=== PATIENT | female | born 1995 | race African-American/Black ===

== ENCOUNTER 2017-12-05 01:59 | Emergency (ER) | payer OTHER ==
[2017-12-05] VITALS (8 sets, daily range): BP systolic 92–128; BP diastolic 52–89
[~2017-12-05] VITALS: Ht 167.6 cm; Wt 56.7 kg
[2017-12-05] MEDS ORDERED: CLONAZEPAM2 MG PO (02:16)
[2017-12-05] MEDS ORDERED: TRINESSA1 EAC1 PO (02:16)
[2017-12-05] MEDS ORDERED: BUPROPION XL300 MG ORAL (02:16)
[2017-12-05 02:44] LABS: BASOPHILS % (AUTO) 1.3 % (0.0-2.0); EOSINOPHILS % (AUTO) 1.5 % (0.0-3.0); HEMATOCRIT 37.2 % (37.0-47.0); MEAN CORPUSCULAR VOLUME 85 FL (80-99); MONOCYTES % (AUTO) 6.3 % (1.0-10.0); NEUTROPHILS % (AUTO) 80.9 % (45.0-75.0); PLATELET COUNT 190 K/UL (150-450); RED BLOOD COUNT 4.39 M/UL (4.20-5.40); WHITE BLOOD COUNT 13.3 K/UL (4.8-10.8)
[2017-12-05 02:50] LABS: ANION GAP 10 mmol/L (5-15); BLOOD UREA NITROGEN 10 mg/dL (7-18); CALCIUM 8.9 MG/DL (8.5-10.1); CARBON DIOXIDE 26 MMOL/L (21-32); CHLORIDE 104 MMOL/L (98-107); CREATININE 0.6 MG/DL (0.55-1.30); POTASSIUM 4.1 MMOL/L (3.5-5.1); SODIUM 139 MMOL/L (136-145)
[2017-12-05 02:50] LABS: APPEARANCE,URINE CLEAR; BILIRUBIN, URINE NEGATIVE (NEGATIVE); COLOR,URINE PALE YELLOW; GLUCOSE, URINE (UA) NEGATIVE (NEGATIVE); KETONES,URINE 4+ (NEGATIVE); LEUKOCYTE ESTERASE ,URINE NEGATIVE (NEGATIVE); NITRITE,URINE NEGATIVE (NEGATIVE); PH,URINE 6 (4.5-8.0); PROTEIN,URINE NEGATIVE (NEGATIVE); UROBILINOGEN,URINE NORMAL MG/DL (0.0-1.0)
[2017-12-05 02:55] LABS: ALANINE AMINOTRANSFERASE 23 U/L (12-78); ALBUMIN 3.9 G/DL (3.4-5.0); ALBUMIN/GLOBULIN RATIO 0.9 (1.0-2.7); ALKALINE PHOSPHATASE 87 U/L (46-116); ASPARTATE AMINO TRANSFERASE 22 U/L (15-37); BILIRUBIN,TOTAL 0.8 MG/DL (0.2-1.0)
--- NOTE | 2017-12-05 05:01 | Emergency Room Report ---
History of Present Illness General Chief Complaint: Overdose Source: Patient, Friend, EMS Present Illness HPI This is a 22-year-old female with a history of depression with recent admission to psychiatric facility. She presents with chief complaint of overdose and suicidal attempt. Her friend called 911 because patient was in the bathroom for very long period of time. When they open the bathroom door patient had handcuffed herself and said that she took some Seroquel and other medication to kill herself. She wrote a suicide note that the friend brought here later. Patient here said that she took other medication also. She told the nurse that she took ibuprofen and Seroquel. She told me that she took Ativan and Klonopin. She took this several hours ago. Previous suicide attempt. She has been more depressed because her boyfriend recently committed suicide. He was admitted here to ICU and subsequently from his overdose. Allergies: Coded Allergies: No Known Allergies (Unverified , 12/05/17) Patient History Past Medical History: see triage record, old chart reviewed Past Surgical History: none Family History: none Social History: ETOH, drug use Last Menstrual Period: 2 weeks ago Now: No Immunizations: other Reviewed Nursing Documentation: PMH: Agreed; PSxH: Agreed Nursing Documentation-PMH Past Medical History: No History, Except For History Of Psychiatric Problem: Yes - Anxiety, Depression Review of Systems ENT: Denies: sore throat Cardiovascular: Denies: chest pain, palpitations Gastrointestinal/Abdominal: Denies: nausea, vomiting, diarrhea Musculoskeletal: Denies: back problems Skin: Denies: rash Neurological: Denies: PYLE, seizures All Other Systems: negative except mentioned in HPI Physical Exam Vital Signs Date Time Temp Pulse Resp B/P (MAP) Pulse Ox O2 Delivery O2 Flow Rate FiO2 12/05/17 02:06 97.6 79 16 146/87 99 Room Air 97.5 vitals normal Sp02 EP Interpretation: reviewed, normal General Appearance: no apparent distress, non-toxic, other - sleepy Head: normocephalic, atraumatic Eyes: PERRL, EOMI ENT: oropharynx normal Neck: supple/symm/no masses Respiratory: effort normal, no rhonchi, no wheezing Cardiovascular: no murmur, gallop, rub Gastrointestinal: non-tender, no mass, non-distended, no rebound/guarding, normal bowel sounds Musculoskeletal: strength & tone normal Neurologic: oriented x3, sensory intact, motor strength/tone normal Suicide Risk Assessment: Suicidal Ideation: Yes Had intent to initiate attempt: Yes Pt's plan for suicide attempt: Yes Has means to complete attempt: Yes Skin: no rash, normal palpation Medical Decision Making Diagnostic Impression: Primary Impression: Drug overdose Qualified Codes: T50.902A - Poisoning by unspecified drugs, medicaments and biological substances, intentional self-harm, initial encounter Additional Impressions: Depression Qualified Codes: F33.3 - Major depressive disorder, recurrent, severe with psychotic symptoms Suicidal overdose Qualified Codes: T50.902A - Poisoning by unspecified drugs, medicaments and biological substances, intentional self-harm, initial encounter Cocaine abuse ER Course Patient presents with a suicide attempt from drug overdose. She is heme- negative police stable and medically clear from my standpoint. We'll get psychiatric evaluation for [id number]. Laboratory Tests Test 12/05/17 02:25 12/05/17 02:45 White Blood Count 13.3 K/UL (4.8-10.8) H Red Blood Count 4.39 M/UL (4.20-5.40) Hemoglobin 12.0 G/DL (12.0-16.0) Hematocrit 37.2 % (37.0-47.0) Mean Corpuscular Volume 85 FL (80-99) Mean Corpuscular Hemoglobin 27.4 PG (27.0-31.0) Mean Corpuscular Hemoglobin Concent 32.4 G/DL (32.0-36.0) Red Cell Distribution Width 14.0 % (11.6-14.8) Platelet Count 190 K/UL (150-450) Mean Platelet Volume 7.3 FL (6.5-10.1) Neutrophils (%) (Auto) 80.9 % (45.0-75.0) H Lymphocytes (%) (Auto) 10.0 % (20.0-45.0) L Monocytes (%) (Auto) 6.3 % (1.0-10.0) Eosinophils (%) (Auto) 1.5 % (0.0-3.0) Basophils (%) (Auto) 1.3 % (0.0-2.0) Sodium Level 139 MMOL/L (136-145) Potassium Level 4.1 MMOL/L (3.5-5.1) Chloride Level 104 MMOL/L (98-107) Carbon Dioxide Level 26 MMOL/L (21-32) Anion Gap 10 mmol/L (5-15) Blood Urea Nitrogen 10 mg/dL (7-18) Creatinine 0.6 MG/DL (0.55-1.30) Estimat Glomerular Filtration Rate > 60 mL/min (>60) Glucose Level 74 MG/DL (74-106) Calcium Level 8.9 MG/DL (8.5-10.1) Total Bilirubin 0.8 MG/DL (0.2-1.0) Aspartate Amino Transf (AST/SGOT) 22 U/L (15-37) Alanine Aminotransferase (ALT/SGPT) 23 U/L (12-78) Alkaline Phosphatase 87 U/L (46-116) Total Protein 8.1 G/DL (6.4-8.2) Albumin 3.9 G/DL (3.4-5.0) Globulin 4.2 g/dL Albumin/Globulin Ratio 0.9 (1.0-2.7) L Salicylates Level 0.8 ug/mL (2.8-20) L Acetaminophen Level < 2 MCG/ML (10-30) L Serum Alcohol < 3 mg/dL Urine Color Pale yellow Urine Appearance Clear Urine pH 6 (4.5-8.0) Urine Specific [place] 1.010 (1.005-1.035) Urine Protein Negative (NEGATIVE) Urine Glucose (UA) Negative (NEGATIVE) Urine Ketones 4+ (NEGATIVE) H Urine Occult Blood Negative (NEGATIVE) Urine Nitrite Negative (NEGATIVE) Urine Bilirubin Negative (NEGATIVE) Urine Urobilinogen Normal MG/DL (0.0-1.0) Urine Leukocyte Esterase Negative (NEGATIVE) Urine HCG, Qualitative Negative (NEGATIVE) Urine Opiates Screen Negative (NEGATIVE) Urine Barbiturates Screen Negative (NEGATIVE) Phencyclidine (PCP) Screen Negative (NEGATIVE) Urine Amphetamines Screen Negative (NEGATIVE) Urine Benzodiazepines Screen Positive (NEGATIVE) H Urine Cocaine Screen Positive (NEGATIVE) H Urine Marijuana (THC) Screen Positive (NEGATIVE) H Lab Results Impression labs unremarkable EKG Diagnostic Results Rate: normal Rhythm: NSR ST Segments: no acute changes Rhythm Strip Diag. Results Rhythm Strip Time: 05:00 EP Interpretation: yes Rate: 74 Rhythm: NSR, no PVC's, no ectopy Last Vital Signs Date Time Temp Pulse Resp B/P (MAP) Pulse Ox O2 Delivery O2 Flow Rate FiO2 12/05/17 03:10 97.8 72 14 117/78 98 Room Air 97.8 Status: improved Disposition: XFER TO PSYCH HOSP/UNIT Condition: Stable Referrals: NOT CHOSEN IPA/,REFERRING (PCP) EMANUEL MUNOZ M.D. Dec 05, 2017 05:00
== END 2017-12-05 13:44 ==
LOC: EDBD 01:59 → EMR 02:10
DX: T50.902A Poisoning by unspecified drugs, medicaments and biological substances, intentional self-harm, initial encounter (principal); F33.3 Major depressive disorder, recurrent, severe with psychotic symptoms; Y92.002 Bathroom of unspecified non-institutional (private) residence as the place of occurrence of the external cause; F41.9 Anxiety disorder, unspecified
CPT/HCPCS: 36415; 80053; 80307; 80329; 81003; 81025; 85025; 93005; 96361; 96374; 99284